=== PATIENT | female | born 1960 | race Caucasian/White ===

== ENCOUNTER → 2022-10-04 15:47 | Outpatient (CLI) | payer MEDICARE, SELFPAY ==
--- NOTE | 2022-10-04 | DI.RAD.S_ITS ---
PROCEDURE: XR LUMBAR SPINE 2-3V INDICATIONS: BACK PAIN TECHNIQUE: 3 views of the lumbar spine were acquired. COMPARISON: None. FINDINGS: Bones: 5 [id number] vertebrae are present. There is normal bony alignment. No vertebral body compression fractures. No suspicious bony lesions. Mild disc height loss at the L5-S1 level; otherwise there is mild multilevel endplate sclerosis and spurring indicating mild multilevel degeneration. Mild facet joint arthropathy L5-S1. Soft tissues: Overlying bowel gas pattern is normal. No suspicious soft tissue calcifications. Cholecystectomy clips. IMPRESSION: Mild multilevel disc degeneration, most notably at the L5-S1 level where there also is mild facet joint arthropathy. Dictated by: Geovanni Unger [facility] Interpreted: Ronny Butler MD on 10/04/2022 at 16:07 Transcribed by: CARTER on 10/04/2022 at 16:09 Approved by: Ronny Butler M.D. on 10/05/2022 at 11:50
== END ==
PROVIDERS: PCP Family Medicine; Referring Provider Family Medicine; Visit Provider Family Medicine
DX: M47.817 Spondylosis without myelopathy or radiculopathy, lumbosacral region (principal); M51.37 Other intervertebral disc degeneration, lumbosacral region; M54.9 Dorsalgia, unspecified
CPT/HCPCS: 72100

== ENCOUNTER → 2022-10-28 10:44 | Outpatient (CLI) | payer MEDICARE, SELFPAY ==
--- NOTE | 2022-10-28 10:47 | DI.MRI.S_ITS ---
PROCEDURE: MR LUMBAR SPINE WO CON INDICATIONS: Lumbar pain TECHNIQUE: Noncontrast sagittal T1 spin echo and T2 fast echo, sagittal STIR, and T2 fast spin echo through the lumbar spine. In cases with scoliosis, additional coronal T2 fast spin echo may be performed. COMPARISON: None. FINDINGS: Image quality: Excellent. Alignment and Curvature: Grade 1 retrolisthesis L1 on two. Trace retrolisthesis T12 on L1. Otherwise normal bone alignment. Bone Marrow: Normal marrow signal in the lumbar spine. Mild anterior endplate osteophytes in the lower thoracic spine and L1-2. Small T10 vertebral body hemangioma. Small Schmorl's nodes in the T10-11 endplates. Spinal Cord: Conus medullaris terminates at the L1 level. Visualized cord demonstrates normal signal and size. Paraspinous Soft Tissues: No paravertebral masses. Bilateral renal parapelvic cysts. T12-L1: Normal appearance. L1-L2: Trace retrolisthesis and minor diffuse posterior disc bulge. No significant central canal or neural foraminal narrowing. L2-L3: Minor circumferential disc bulge. No significant central canal or foraminal narrowing. L3-L4: Minor circumferential disc bulge with nearly circumferential, minimal annular tear. Minor broad-based protrusion left foraminal. No herniated disc material. No central canal or foraminal narrowing. L4-L5: Minor circumferential disc bulge. No central canal or foraminal narrowing. L5-S1: Normal appearance. IMPRESSION: 1. Minor circumferential disc bulge and peripheral near circumferential annular tearing at L3-4. No focal disc herniation. 2. Anterior degenerative endplate spurring in the lower thoracic spine. 3. L1 on L2 retrolisthesis without central canal or foraminal stenosis. Dictated by: Marilynn Santiago M.D. on 10/28/2022 at 12:47 Approved by: Marilynn Santiago M.D. on 10/28/2022 at 12:58
== END ==
PROVIDERS: PCP Family Medicine; Referring Provider Family Medicine; Visit Provider Family Medicine
DX: M54.41 Lumbago with sciatica, right side (principal); M43.16 Spondylolisthesis, lumbar region; Z87.39 Personal history of other diseases of the musculoskeletal system and connective tissue
CPT/HCPCS: 72148

== ENCOUNTER → 2022-11-14 11:38 | Outpatient (CLI) | payer MEDICARE, SELFPAY ==
[2022-11-14 12:59] LABS: Add Manual Diff / Slide Review NO; Basophils Absolute Auto 0 /uL (0-100); Basophils Percent Auto 0.7 % (0-2); Eosinophils Absolute Auto 100 /uL (0-450); Eosinophils Percent Auto 1.3 % (2-4); Hematocrit 36.4 % (36-46); Hemoglobin 12.1 g/dL (12.0-16.0); Lymphocytes Absolute Auto 2200 /uL (1100-4500); Lymphocytes Percent Auto 40.3 % (25-40); Mean Corpuscular HGB Conc 33.3 % (30-36); Mean Corpuscular Hemoglobin 29.7 PG (26-34); Mean Corpuscular Volume 89.1 fL (80-100); Monocytes Absolute Auto 400 /uL (0-900); Monocytes Percent Auto 6.6 % (3-14); Neutrophils Absolute Auto 2700 /uL (1500-7000); Neutrophils Percent Auto 51.1 % (50-75); Platelet Count 274 X10^3/uL (150-400); Red Blood Cell Count 4.08 X10^6/uL (4.0-5.2); Red Cell Distribution Width 15.1 % (11.6-14.8); White Blood Cell Count 5.3 X10^3/uL (4.5-11.0)
[2022-11-14 13:29] LABS: Alanine Aminotransferase 21 IU/L (<35); Albumin 4.2 g/dL (3.5-5.0); Albumin Globulin Ratio 1.7 (1.0-2.8); Alkaline Phosphatase 67 U/L (38-126); Aspartate Aminotransferase 31 IU/L (14-36); Bilirubin Total 0.6 mg/dL (0.2-1.3); Blood Urea Nitrogen 15 mg/dL (7-17); Calcium 9.4 mg/dL (8.4-10.2); Carbon Dioxide 27 mmol/L (22-32); Chloride 104 mmol/L (98-107); Cholesterol 198 mg/dL (140-199); Estimated Glomerular Filt Rate > 60 mL/min (>60); Globulin 2.5 g/dL (1.7-4.1); Glucose 95 mg/dL (80-110); HDL Cholesterol 56 mg/dL (40-60); HEMOLYSIS < 15 (0-50); LDL Cholesterol Calculated 125 mg/dL (<100); Potassium 4.7 mmol/L (3.4-5.1); Sodium 138 mmol/L (137-145); Total Protein 6.7 g/dL (6.3-8.2); Triglycerides 86 mg/dL (35-150)
[2022-11-14 13:57] LABS: TSH w/ Reflex to FT4 0.87 uIU/mL (0.47-4.68)
== END ==
PROVIDERS: PCP Family Medicine; Referring Provider Family Medicine; Visit Provider Family Medicine
DX: Z00.00 Encounter for general adult medical examination without abnormal findings (principal); M54.9 Dorsalgia, unspecified; G89.29 Other chronic pain; M81.0 Age-related osteoporosis without current pathological fracture; L40.9 Psoriasis, unspecified
CPT/HCPCS: 80053; 80061; 84443; 85025